=== PATIENT | female | born 1975 | race Caucasian/White ===

== ENCOUNTER 2017-12-04 09:13 | Emergency (ER) | payer OTHER | END 2017-12-04 11:22 | disposition home or self-care (01) | LOC: FTE 11:22 | DX: K64.4 Residual hemorrhoidal skin tags (principal) | CPT/HCPCS: 99284; Z7502 ==

== ENCOUNTER 2018-02-14 09:05 | Emergency (ER) | payer OTHER | END 2018-02-14 11:46 | disposition home or self-care (01) | LOC: FTE 09:05 | DX: H61.22 Impacted cerumen, left ear (principal); H60.502 Unspecified acute noninfective otitis externa, left ear | CPT/HCPCS: 69209; 99283-25 ==